=== PATIENT | male | born 1955 | race Caucasian/White ===

== ENCOUNTER → 2019-05-23 | Outpatient (CLI) | payer MEDICARE | LOC: CARD 12:29 | PROVIDERS: ATTEND Internal Medicine Cardiovascular Disease | DX: I10 Essential (primary) hypertension (principal); E78.5 Hyperlipidemia, unspecified; R06.02 Shortness of breath; Z72.0 Tobacco use; Z79.82 Long term (current) use of aspirin; Z79.899 Other long term (current) drug therapy; I35.0 Nonrheumatic aortic (valve) stenosis | CPT/HCPCS: 93306 ==

== ENCOUNTER → 2019-05-31 | Outpatient (CLI) | payer MEDICARE ==
[~2019-05-31] VITALS: Ht 165 cm; Wt 66.0 kg
[~2019-05-31] MED LIST: CATHETER FLUSH 10 ML SYR IV PRN; REGADENOSON 0.4 MG/5 ML SYR (LEXISCAN) IV ONE
[2019-05-31 09:19] VITALS: BP 129/58
--- NOTE | 2019-05-31 19:58 | STRESS TEST ---
DATE OF SERVICE: 05/31/2019 RESTING AND POST REGADENOSON TECHNETIUM-99M TETROFOSMIN SPECT CT IMAGING ORDERING PHYSICIAN: Dr. Fong. PRIMARY PHYSICIAN: Amalia Brown APRN CLINICAL DIAGNOSES: Shortness of breath, tobacco use, hypertension. Baseline images were carried out after injection of 10.43 mCi of technetium-99m Tetrofosmin. This was followed by 0.4 mg regadenoson and 29.7 mCi of technetium-99m Tetrofosmin for stress imaging. The electrocardiogram showed sinus rhythm. Old septal myocardial infarction cannot be excluded on the electrocardiogram. The electrocardiogram did not change significantly with regadenoson infusion. The patient tolerated the procedure well. Review of images at rest and following stress indicates a small apical perfusion defect that is fixed. There does not appear to be distinct regional wall motion abnormality. There appears to be some degree of a very localized apical hypokinesis. Left ventricular end diastolic volume is 73 mL. TID is absent (1). Left ventricular ejection fraction of 62%. CONCLUSIONS: 1. The study is suggestive of a small apical infarction without ischemia. 2. Small area of localized apical hypokinesis. 3. Well preserved global left ventricular systolic function with ejection fraction of 62%. Job ID: [id number] DocumentID: [id number] Dictated Date: 05/31/2019 16:23:12 Adult Neuropsychologist Date: 05/31/2019 19:57:27 Dictated By: ANN FONG MD, MA, FACP, FACC,
== END ==
LOC: CARD 07:33 → EDUNIT# 07:45
PROVIDERS: ATTEND Internal Medicine Cardiovascular Disease
DX: I10 Essential (primary) hypertension (principal); R06.02 Shortness of breath; E78.5 Hyperlipidemia, unspecified; Z72.0 Tobacco use
CPT/HCPCS: 78452; 93017

== ENCOUNTER → 2019-09-20 | Outpatient (CLI) | payer MEDICARE ==
--- NOTE | 2019-09-20 13:12 | Diagnostic Imaging Report ---
EXAMINATION: CT CHEST SCREENING WO INDICATION: Lung cancer screening in a current smoker with 50 pack year history. Patient reports smoking a pack a day. TECHNIQUE: Low-dose helical CT of the chest without IV contrast (Adult Lung Cancer Screening) protocol was performed. Coronal and sagittal reformats were obtained. All CT scans use one or more of the following dose optimizing techniques: automated exposure control, MA and/or KvP adjustment based on a patient size and exam type, or iterative reconstruction. COMPARISON: None available. FINDINGS: LUNG NODULES, solid unless otherwise specified, axial series 2: Right lung: * 3 mm average diameter pulmonary nodule in the posterior segment of the right lower lobe (image 156) * Partially calcified 3 mm pulmonary nodule in the lateral segment of the right lower lobe (image 207) * 10 mm average diameter centrally calcified pulmonary nodule in the lateral segment of the right lower lobe (image 215) Left lung: * 4 mm average diameter mary-fissural nodule along the superior aspect of the left major fissure, likely representing an intrapulmonary lymph node (image 139) OTHER FINDINGS: Low-dose technique and absence of intravenous contrast decreases sensitivity for detection of lymphadenopathy and vascular pathology. TRACHEA AND MAIN BRONCHI: Patent without evidence of tracheal or endobronchial lesion. Mild bronchial wall thickening is noted centrally, possibly reflecting chronic bronchitis. LUNGS AND PLEURA: Upper lobe predominant centrilobular emphysematous changes are demonstrated in both lungs. No focal consolidation or pulmonary mass. No pleural effusion or pneumothorax. MEDIASTINUM AND CHAZ: Visualized thyroid gland is normal. No mediastinal or hilar lymphadenopathy, within limits of noncontrast technique. Esophagus is nondistended. HEART AND VESSELS: Heart is normal in size. No pericardial effusion. Thoracic aorta is nonaneurysmal. DIAPHRAGM AND UPPER ABDOMEN: Unremarkable. CHEST WALL: Unremarkable. BONES: Multilevel degenerative changes involve the spine. No acute osseous abnormality. IMPRESSION: 1. Pulmonary nodules, as detailed above, are very low likelihood of becoming a clinically active cancer. Continued annual screening is recommended. 2. No acute cardiopulmonary process. No significant incidental findings. Lung-RADS Category: 2, Benign appearance or behavior. Nodules with a very low likelihood of becoming a clinically active cancer due to size or lack of growth. RECOMMENDATIONS: Continue annual screening with low-dose CT in 12 months. MODIFIER: None. Dictated by: Dictated on workstation # [id number]
== END ==
LOC: RAD 12:11
PROVIDERS: ATTEND Nurse Practitioner Family
DX: Z12.2 Encounter for screening for malignant neoplasm of respiratory organs (principal); R91.8 Other nonspecific abnormal finding of lung field; Z87.891 Personal history of nicotine dependence